=== PATIENT | female | born 1960 | race Caucasian/White ===

== ENCOUNTER 2019-04-30 12:29 | Observation (INO) | payer SELFPAY ==
[2019-04-29 13:01] VITALS: BMI 24.5
[2019-04-29 13:50] LABS: Add Urine Microscopic? NO
[2019-04-29 14:03] LABS: Basophils % 0.5 %; Eosinophils # 0.1 10^3/uL (0.0-0.8); Eosinophils % 1.5 %; Hematocrit 41.6 % (37.0-47.0); Hemoglobin 13.7 g/dL (11.5-15.3); Lymphocytes # 1.8 10^3/uL (0.8-4.8); Lymphocytes % 29.5 %; Mean Corpuscular HGB Conc 32.9 g/dL (30.0-36.0); Mean Corpuscular Hemoglobin 31.8 pg (28.0-34.0); Mean Corpuscular Volume 96.5 fL (81-99); Mean Platelet Volume 10.3 fL (7.4-10.4); Monocytes # 0.6 10^3/uL (0.2-0.9); Neutrophils # 3.5 10^3/uL (1.8-7.7); Neutrophils % 58.3 %; Nucleated Red Blood Cells % 0 %; Platelet Count 267 10^3/cmm (130-400); Red Blood Count 4.31 10^6/uL (4.1-5.3); Red Cell Distribution Width 13.1 % (12.1-15.1)
--- NOTE | 2019-04-29 14:11 | ANES.PREANE2 ---
Pre-Anesthetic Assessment Pre-Anesthetic Assessment: Height/Weight: Height 1.7 m Weight 71.214 kg Preop Diagnosis: Incomplete uterovaginal prolapse Proposed Procedure: Operation Date: 04/30/19 09:00 Proposed Procedures p Total Vaginal Hysterectomy 85120 [id number] 45420 N81.2(Bilateral) - MD eugenia Campbell Salpingo-Oophorectomy (Vaginal)(Not Applicable) - MD eugenia Campbell Ureterosacral Ligament Suspension(Not Applicable) - MD eugenia Campbell Cystoscopy(Not Applicable) - MD eugenia Campbell poss Anterior Repair(Not Applicable) - MD eugenia Campbell poss Posterior Repair(Not Applicable) - Sanchez Benitez MD Was Beta Carley taken within 24 hours: N/A Social: Social History: No alcohol and No tobacco Comment: Recently quit smoking--on nicotine Exam: Pre-Anes Outpt Exam: alert, oriented x 3, clear to auscultation bilaterally and regular rate & rhythm Airway: Submandibular: WNL Cervical ROM: WNL MP: 2 Dentition: False Additional comments: upper and lower denture Pulmonary: Pulmonary: COPD CV/HEM: CV/HEM: None reported : : None reported Hepatic: Hepatic: None reported GI: GI: None reported Metabolic: Metabolic: None reported Musc/skel: Comments: Hip pain from fracture, walks with cane Neuropsych: Neuropsych: None reported Anesthetic Plan: ASA status: 3 Anesthesia: General Risk of > 500 ml blood loss (7ml/kg in children): Yes, adequate IV access and fluids planned PFSH Anesthesia PFSH: Social History Smoking and tobacco status: current some day smoker cigarettes Packs smoked per day: 1 Years cigarettes smoked: 15 [ Other cigarette details: currently on nicotine patch ] Quit status (tobacco): has tried quititng Alcohol intake: current Alcohol intake frequency: few times a week Alcohol type: wine Substance/Drug Use: never Data Anesthesia CBC & Chem 7: 04/29/19 13:10 Other Labs: Laboratory Results - last 48 hr 04/29/19 13:10 WBC 6.0 RBC 4.31 Hgb 13.7 Hct 41.6 MCV 96.5 MCH 31.8 MCHC 32.9 RDW 13.1 Plt Count 267 MPV 10.3 Neut % (Auto) 58.3 Lymph % (Auto) 29.5 [place] % (Auto) 10.0 Eos % (Auto) 1.5 Baso % (Auto) 0.5 Neut # (Auto) 3.5 Lymph # (Auto) 1.8 [place] # (Auto) 0.6 Eos # (Auto) 0.1 Baso # (Auto) 0.0 Nucleated RBC % (auto) 0 Nucleated RBCs # 0.0 Cardiac Studies: No Data to Display
[2019-04-29 14:29] LABS: Bilirubin Urine Neg (NEGATIVE); Blood Urine Neg (Negative); Glucose Urine UA Norm (Normal); Ketones Urine Negative (Negative); Leukocyte Esterase Urine Negative (Negative); Nitrate Urine Negative (Negative); Protein Urine Neg (Negative); Sulfosalicylic Acid Urine Negative; Urine Appearance Clear (CLEAR); Urine Color Yellow (Yellow); Urobilinogen Urine Norm (Negative)
[2019-04-30] VITALS (18 sets, daily range): BP systolic 109–160; BP diastolic 57–99; PULSE 65–94; RESP 14–19; TEMP 36.3–37.1; O2SAT 92–100
--- NOTE | 2019-04-30 07:43 | ANES.PAUD2 ---
Pre-Anesthetic Update Pre-Anesthetic Assessment: Date of Surgery/Procedure: 04/30/19 Preop Diagnosis: Incomplete uterovaginal prolapse Proposed Procedure: Operation Date: 04/30/19 09:00 Proposed Procedures p Total Vaginal Hysterectomy 25419 79537 83225 57530 N81.2(Bilateral) - MD eugenia Campbell Salpingo-Oophorectomy (Vaginal)(Not Applicable) - MD eugenia Campbell Ureterosacral Ligament Suspension(Not Applicable) - MD eugenia Campbell Cystoscopy(Not Applicable) - MD eugenia Campbell poss Anterior Repair(Not Applicable) - MD eugenia Campbell poss Posterior Repair(Not Applicable) - Sanchez Benitez MD Any changes to Pre-Anesthetic Assessment?: No Last Intake: Intake Last Liquid Date 04/29/19 Last Liquid Time 22:30 Last Solid Date 04/29/19 Last Solid Time 22:30 Labs Last 48hrs: Laboratory Results - last 48 hr 04/29/19 04/29/19 04/29/19 13:10 13:10 13:10 WBC 6.0 RBC 4.31 Hgb 13.7 Hct 41.6 MCV 96.5 MCH 31.8 MCHC 32.9 RDW 13.1 Plt Count 267 MPV 10.3 Neut % (Auto) 58.3 Lymph % (Auto) 29.5 [place] % (Auto) 10.0 Eos % (Auto) 1.5 Baso % (Auto) 0.5 Neut # (Auto) 3.5 Lymph # (Auto) 1.8 [place] # (Auto) 0.6 Eos # (Auto) 0.1 Baso # (Auto) 0.0 Nucleated RBC % (a uto) 0 Nucleated RBCs # 0.0 Urine Color Yellow Urine Appearance Clear Urine pH 8.0 H Ur Specific Gravit y 1.010 Urine Protein Neg Urine Glucose (UA) Norm Urine Ketones Negative Urine Blood Neg Urine Nitrate Negative Urine Bilirubin Neg Prot Sulfosalicyli c Acd Negative Urine Urobilinogen Norm Ur Leukocyte Francine ase Negative Blood Type A Positive Rho(D) Type Positive Antibody Screen Negative Vitals: Temperature 97.4 F L 04/30/19 07:27 Temperature Source Temporal Artery S can 04/30/19 07:27 Pulse Rate 81 04/30/19 07:27 Respiratory Rate 18 04/30/19 07:27 Blood Pressure 151/76 04/30/19 07:27 Blood Pressure Avani n 101 04/30/19 07:27 Pulse Oximetry 96 04/30/19 07:27 Oxygen Delivery Me thod 04/30/19 07:27 Cardiac Studies: No Data to Display
[2019-04-30] MEDS: sodium chloride 0.9% 1,000 ML 30 ML IV (08:14)
--- NOTE | 2019-04-30 08:24 | P.HPUD_ITS ---
Surgery/Procedure H&P Update DATE OF PROCEDURE: April 30, 2019 DATE H&P PERFORMED: 04/29/19 H&P UPDATE INFORMATION: I have reviewed H&P completed within last 30 days, I have examined patient prior to procedure, No changes to prior documentation and H&P is in [facility] EMR on date indicated PREOP DIAGNOSIS: Incomplete uterovaginal prolapse PLANNED PROCEDURE: Operation Date: 04/30/19 09:00 Proposed Procedures p Total Vaginal Hysterectomy 01484 [id number] 61919 N81.2(Bilateral) - MD eugenia Campbell Salpingo-Oophorectomy (Vaginal)(Not Applicable) - MD eugenia Campbell Ureterosacral Ligament Suspension(Not Applicable) - MD eugenia Campbell Cystoscopy(Not Applicable) - MD eugenia Campbell poss Anterior Repair(Not Applicable) - MD eugenia Campbell poss Posterior Repair(Not Applicable) - Sanchez Benitez MD
[2019-04-30] MEDS: ketorolac 30 mg/mL INJ IVP ×2 (08:30→13:41)
[2019-04-30] MEDS: phenazopyridine 100 mg Tablet 200 MG PO ×3 (08:30→21:28)
[2019-04-30] MEDS: vasopressin 20 unit/mL INJ INJECTION (11:47)
--- NOTE | 2019-04-30 12:02 | P.OP_ITS ---
Operative Report Date of procedure: April 30, 2019 Pre-op Diagnosis: Incomplete uterovaginal prolapse Post-op Diagnosis: Incomplete uterovaginal prolapse Procedure Done: Total vaginal hysterectomy, Intra-abdominal vaginal colpopexy - vaginal approach (Uterosacral ligament suspension), Anterior colporrhaphy, Cystoscopy Specimens removed/disposition: None Surgeon: Sanchez Benitez Interface Developer: SERA Giles Anesthesia: General Estimated blood loss (mL): 25 IV fluids (mL): 1,700 Complications: None Brief History: Patient is a 58-year-old white female 1, para 0-1-0-1 who is postmenopausal. She had presented to the office on 03/22/2019 due to prolapse. She reports that over the last 6 months, she had noticed increasing vaginal pressure and a bulge at the vaginal opening that worsens with lifting, coughing, and any type of straining. Prolonged standing also made it worse. She denied any urinary leaking, but does feel like she does not always completely empty her bladder. On exam, she had been found to have 1/3 degree uterine prolapse with a high cystocele, rectocele and probable enterocele. Discussed with her treatment options including pessary and surgical repair. Questions were answered and she wished to proceed with surgical treatment. Procedure: Patient was taken to the operating room where general anesthesia was obtained. She was prepped and draped in usual sterile fashion in the dorsal supine position with legs in Jason style stirrups. Sequential compression boots were placed prior to starting the case. Saldana catheter was inserted and exam under anesthesia was performed. She was found to have third-degree uterine prolapse with high cystocele and rectocele.. Weighted speculum was placed in the vagina and the cervix was grasped with Joseph clamps. The cervix was circumferentially injected with dilute Pitressin solution. A circumferential incision was made with a knife, extending from the 8 o'clock position anteriorly to the 4 o'clock position. A V-shaped area of skin was also excised along the posterior cervical area, allowing entry into the posterior cul-de-sac. She had an elongated cervix. The bladder was bluntly dissected off of the lower uterine segment. The peritoneum was tagged to the vaginal mucosa in the midline. Long weighted retractor was placed in the posterior cul-de-sac. The uterosacral ligaments were clamped, cut, and suture ligated with 0 Vicryl suture bilaterally. The cardinal ligament complexes were clamped, cut, and suture ligated with 0 Vicryl suture bilaterally. The bladder was sharply dissected away from the uterus and the anterior cul-de-sac entered. A long right angle retractor was used to elevate the bladder away from the uterus. The remaining portions of the broad ligament were serially clamped, cut, and suture ligated with 0 Vicryl suture bilaterally until the uterus was completely excised. The pedicles were inspected and noted to be hemostatic. The ovaries were pulled laterally and were not able to be visualized. They palpated as small bilaterally. As a result, ovaries were not removed. The right uterosacral ligament was palpated. A vrlsah-bm-mdwyt stitch of 0 Ethibond suture was placed high into the uterosacral ligament on the right side. The left uterosacral ligament was palpated. A ipkxjp-pd-xfeiu stitch of 0 Ethibond suture was placed high into the uterosacral ligament on the left side. Stitches were then held. Saldana catheter was removed and cystoscopy was performed. Both ureters were noted to be effluxing urine well following tension being applied to the Ethibond sutures. Bladder was drained and Saldana catheter reinserted. The V shaped area of the posterior cuff was closed in a running fashion with 0 Vicryl suture. This narrowed the posterior cuff significantly. This also eliminated most of the enterocele. The anterior vaginal wall was injected with dilute Pitressin solution. Starting at the vaginal cuff the vaginal mucosa was undermined in the midline. It was opened in the midline and carried up to the urethrovesical junction. The skin was sharply and bluntly dissected off of the vesicovaginal fascia until the lateral aspects of the anterior wall was reached. This was carried from the vault to the level of the urethrovesical junction. 2-0 Vicryl sutures were then placed into the lateral corner of the vesicovaginal fascia. The suture was carried across to the contralateral side and secured into the vesicovaginal fascia at approximately the same level. Multiple sutures were placed along the anterior vaginal wall. Once the stitches were all placed, they were tied in the midline, significantly reducing the cystocele. Excess vaginal mucosa was excised and the anterior vaginal wall was reapproximated in the midline using 3-0 Vicryl suture in a running locking fashion. 0 Ethibond suture was secured to the vaginal cuff both anteriorly and posteriorly using the ipsilaterally placed sutures. The vaginal cuff was then closed in a horizontal fashion using interrupted vabilc-xl-cvnip stitches of 0 Vicryl suture. Once the cuff was closed, the 0 Ethibond sutures were tied and the vaginal cuff was pulled in the cephalad direction, essentially eliminating the rectocele and providing good vault support. As a result, posterior colporrhaphy was not required. Saldana catheter was removed and cystoscopy again performed. Both ureters were noted to be effluxing urine well. The bladder was inspected with no masses or growths noted. No suture material identified within the bladder. Bladder was drained and Saldana catheter was reinserted. Vagina was packed with 1 inch Nu Gauze. Patient tolerated procedure well. Sponge needle and instrument counts were correct. DRAINS: Saldana catheter FINDINGS: Third-degree uterine prolapse with high cystocele, rectocele, and enterocele. Ovaries were palpated as small and atrophic. Bladder was normal in appearance on cystoscopy. POSTOPERATIVE STATUS: The patient was transferred to the recovery room in satisfactory condition.
[2019-04-30] MEDS: fentaNYL 50 mcg/mL INJ 2mL IVP ×2 (12:18→12:23)
[2019-04-30] MEDS: HYDROcodone-acetaminophen 5-325 mg Tablet PO ×2 (13:39→19:27)
[2019-04-30] MEDS: dextrose 5%-lactated ringers 1,000 ML 125 ML IV (13:41)
[2019-04-30] MEDS: acetaminophen 325 mg Tablet 650 MG PO (17:24)
[2019-04-30] MEDS: docusate sodium 100 mg Capsule PO (17:24)
[2019-05-01 01:26] VITALS: BP 128/65; PULSE 80; RESP 16; TEMP 36.8; O2SAT 92
[2019-05-01] MEDS: HYDROcodone-acetaminophen 5-325 mg Tablet PO ×3 (03:13→15:59)
[2019-05-01 04:20] VITALS: BP 110/48; PULSE 72; RESP 18; TEMP 36.8; O2SAT 94
[2019-05-01 05:45] LABS: Hematocrit 35.5 % (37.0-47.0); Hemoglobin 11.4 g/dL (11.5-15.3); Mean Corpuscular HGB Conc 32.1 g/dL (30.0-36.0); Mean Corpuscular Hemoglobin 30.1 pg (28.0-34.0); Mean Corpuscular Volume 93.7 fL (81-99); Platelet Count 230 10^3/cmm (130-400); Red Blood Count 3.79 10^6/uL (4.1-5.3); Red Cell Distribution Width 13.2 % (12.1-15.1); White Blood Count 10.9 10^3/uL (4.0-10.0)
[2019-05-01] MEDS: docusate sodium 100 mg Capsule PO (09:40)
[2019-05-01] MEDS: phenazopyridine 100 mg Tablet 200 MG PO ×2 (09:40→15:59)
[2019-05-01 09:41] VITALS: BP 125/75; PULSE 76; RESP 16
--- NOTE | 2019-05-01 10:07 | PC.NURSE ---
Saldana discontinued Saldana discontinued by Medical Student with Dr. Benitez at bedside. Balloon was deflated with 8mL removed. Pt tolerated well.
--- NOTE | 2019-05-01 13:08 | ANE.PACU2 ---
 Inpatient post-anesthesia follow up: Airway intact: Yes Vital signs: Temperature 98.2 F Pulse Rate 76 Respiratory Rate 16 Blood Pressure 125/75 Pulse Oximetry 94 Oxygen Delivery Me thod Room Air Oxygen Flow Rate 1 Fraction of Inspir ed Oxygen Hydration adequate: Yes Nausea and vomiting: No Pain level: 2 Mental status: Baseline Additional Comments: Urinary retention
--- NOTE | 2019-05-01 13:32 | PC.NURSE ---
This nurse educated pt on how to properly straight cath herself. Pt was able to straight cath herself and was able to drain her bladder. This nurse educated pt on how long to wait before voiding trials at home.
--- NOTE | 2019-05-01 14:46 | PM.DCS ---
Discharge Providers Date of Admission: 04/30/19 12:29 Date of Discharge: May 01, 2019 Attending Provider at Admission: Sanchez Benitez MD Attending Provider at Discharge: Sanchez Benitez MD Primary Care Provider: Chong Kwok MD Diagnoses at Discharge Discharge Diagnosis (1) Incomplete uterovaginal prolapse: Status: Acute Reason for Visit Reason for Visit: Reason For Visit: total vaginal hysterectomy with bilateral salpingo Hospital Course Hospital Course: Patient is a 58-year-old white female 1, para 0-1-0-1 who is postmenopausal. She presented to the office on 03/22/2019 complaining of vaginal prolapse. She states that this had worsened over the last 6 months reported increasing vaginal pressure and a bulge at the vaginal opening which worsens with lifting, coughing, sneezing, any type of straining. Prolonged standing also made it worse. She denied leaking urine. On exam she was found to have a third-degree uterine prolapse with high cystocele and rectocele. Different treatment options were discussed with her and she wished to proceed with surgical treatment for her prolapse. Patient was admitted to the hospital for same-day surgery. She had a total vaginal hysterectomy, intra-abdominal vaginal colpopexy-vaginal approach (uterosacral ligament suspension), anterior vaginal repair, and cystoscopy performed. She tolerated the surgery well. Following surgery she was initially treated with parenteral pain medication and switch to oral medications. She was started on clear liquids and this was advanced by the evening. Activities were also increased during the day. POSTOPERATIVE DAY 1 Patient reports doing well overall. She was tolerating regular diet without nausea or vomiting. She was ambulating without lightheadedness or dizziness. She reported that her pain was well controlled on oral medications. She denied any shortness of breath or chest pains. She reported passing flatus. PHYSICAL EXAM: See below. PLAN Vaginal packing was removed. Saldana catheter was removed and post void residuals checked. Patient had large post void residuals on multiple checks through the morning and she was sent home after being instructed on self-catheterization. She was instructed to continue the self-catheterization until she was able to urinate at least 800 mL on her own with less than 100 mL left over in the bladder on at least 2 consecutive voids. She was to contact the office in a couple of days with how she was doing with this. Physical Exam Const: COMMON NORMALS: no apparent distress, average body habitus, alert and well nourished GENERAL APPEARANCE: well developed ORIENTATION/CONSCIOUSNESS: Yes oriented to person, Yes oriented to place and Yes oriented to time Resp: COMMON NORMALS: normal respiratory effort and clear to auscultation bilaterally AUSCULTATION: clear to auscultation bilaterally Cardio: COMMON NORMALS: regular rate, regular rhythm, no gallops, no murmurs and no rub RATE: regular rate RHYTHM: regular rhythm PERIPHERAL PULSES: posterior tibial pulses present GI: COMMON NORMALS: soft to palpation, no hepatosplenomegaly and no masses AUSCULTATION: Yes normoactive bowel sounds PALPATION: Yes soft, Yes tender (Mild suprapubic tenderness to palpation), Yes no hepatosplenomegaly and No hernia : EXTERNAL FEMALE EXAM: No hernia Neuro: SENSORIUM/ORIENTATION: Yes alert, Yes oriented to person, Yes oriented to place and Yes oriented to time Psych: COMMON NORMALS: affect normal MOOD & AFFECT: Yes euthymic mood Urinary Catheter Management^: Saldana: Cath Placed During This Visit: yes, but has since been removed by the nurse Reason for Continuing Indwelling Catheter: Not indwelling catheter Urinary Catheter Date of Insertion: 04/30/19 Urinary Catheter Time of Insertion: 10:03 Date Urinary Catheter Removed: 05/01/19 Time Urinary Catheter Discontinued: 08:15 Discharge Data Data Completed and Pending: Pending at discharge Category Date Time Status Pathology: Surgic al [PTH] Routine Pth 04/30/19 14:05 Received Labs from last 24 hours 05/01/19 05:22 WBC 10.9 H RBC 3.79 L Hgb 11.4 L Hct 35.5 L MCV 93.7 MCH 30.1 MCHC 32.1 RDW 13.2 Plt Count 230 MPV 10.0 Vitals: Last Vital Signs Temp 98.2 F 05/01/19 04:20 Pulse 76 05/01/19 09:41 Resp 16 05/01/19 09:41 BP 125/75 05/01/19 09:41 Pulse Ox 94 05/01/19 04:20 Discharge Plan Discharge Patient Disposition: Home, Self-Care Condition: Stable Prescriptions: Continued Adult 50 Plus Probiotic 4 billion cell capsule 4,000 mmu cells PO BEDTIME RF: 0 nicotine 21 mg/24 hr patch 24 hour 1 patch TRANSDERMA Q24H RF: 0 No Action povidone-iodine [Betadine Swabsticks] 10 % swab 1 applic TOPICAL ONCE Qty: 1 RF: 0 Discharge Orders: Discharge Order (Routine); Ordered 05/01/19 Ordered By: Sanchez Benitez Referrals: Sanchez Benitez MD [Physician] - 2 weeks (Your 2 week post op appointment is on 05/13/2019 at 8:00am. Your 6 week post op appointment is on 06/10/2019 at 8:15am. ) Discharge Diet: Regular Discharge Activity: Limit activity as instructed Patient Instructions: Hydrocodone/Acetaminophen (By mouth), Vaginal Hysterectomy (DC), OB Abdominal Surgery - [facility], OB Discharge Report, OB Food/Drug Interaction Guide Activity Restrictions/Additional Instructions: May use [id number] ibuprofen 200 mg, 3 tablets four times a day or 4 tablets three times a day, as needed for pain. Instruct patient on self catheterization. Discharge Date/Time: 05/01/19 16:10 Discharge Attestations Time Spent in Discharge Care*: less than 30 min Quality Metrics Clinical Quality Measures During this hospital stay, did patient experience: None Coding Level of Care Code Acute L[employer]ades Supervisor for Chg Fwd Diagnoses Incomplete uterovaginal prolapse N81.2
[2019-05-01 16:00] VITALS: BP 148/75; PULSE 68; RESP 17; TEMP 36.3
[2019-05-01 16:11] VITALS: BP 148/75; PULSE 68; RESP 17; TEMP 36.3
== END 2019-05-01 16:10 | disposition home or self-care (01) ==
LOC: OBGYN 12:29
PROVIDERS: Admitting Provider Obstetrics & Gynecology; PCP Family Medicine; Visit Provider Obstetrics & Gynecology
PROC: (CPT 57260; principal; 2019-04-30 09:00)
PROC: (CPT 57283; 2019-04-30 09:00)
PROC: 0TJB8ZZ Inspection of Bladder, Via Natural or Artificial Opening Endoscopic (ICD-10-PCS; CPT 52000; 2019-04-30 09:00)
PROC: 0JQC0ZZ Repair Pelvic Region Subcutaneous Tissue and Fascia, Open Approach (ICD-10-PCS; CPT 57240; 2019-04-30 09:00)
DX: N81.2 Incomplete uterovaginal prolapse (principal); J44.9 Chronic obstructive pulmonary disease, unspecified; F17.210 Nicotine dependence, cigarettes, uncomplicated; Z82.49 Family history of ischemic heart disease and other diseases of the circulatory system
CPT/HCPCS: 57260; 57283; 58260; 12345; 36415; 51702; 51798; 81003; 85025; 85027; 86850; 86900; 87086; 88307; 96360; 96361; 96374; 96375; G0378; J0131; J0690; J1100; J1885; J2001; J2405; J2704; J2710; J2765; J3010; J3490; J7030

== ENCOUNTER → 2019-05-13 09:30 | Outpatient (BNVA) | payer SELFPAY | PROVIDERS: PCP Family Medicine; Visit Provider Obstetrics & Gynecology | DX: R30.0 Dysuria (principal) | CPT/HCPCS: 80053; 84315; 87077; 87086; 87186 ==